=== PATIENT | male | born 1965 | race Caucasian/White ===

== ENCOUNTER → 2016-10-11 | Emergency (ER) | payer OTHER ==
[~2016-10-11] VITALS: Ht 180.3 cm; Wt 90.9 kg
[~2016-10-11] MED LIST: COLACE100 MG PO; FLEXERIL10 MG PO; IBUPROFEN800 MG PO; LIDODERM 5% P1 PATCH TD; LODINE400 MG PO; LOVENOX30 MG/0.3 SC; MAG-AL PLUS SUS30 ML PO; MILK OF MAGNESI10 ML PO; NAPROSYN500 MG PO; NAPROXEN500 MG PO; OMEPRAZOLE20 MG PO; ONDANSETRON4 MG/2 ML IV; OXYCODONE HCL5 MG PO; PERCOCET 5/31 TABLET PO; SENNA8.6 MG PO; SERTRALINE HCL100 MG PO; SIMVASTATIN20 MG PO; TORADOL10 MG PO; ULTRAM50 MG PO; VALIUM2 MG PO; ZYRTEC10 M2 PO
[2016-10-11 05:51] VITALS: BP 143/86
== END | disposition home or self-care (01) ==
LOC: EME 04:12
DX: S29.011A Strain of muscle and tendon of front wall of thorax, initial encounter (principal); X50.0XXA Overexertion from strenuous movement or load, initial encounter; Y93.89 Activity, other specified; Z88.0 Allergy status to penicillin
CPT/HCPCS: 71101; 99281; 99283

== ENCOUNTER 2016-10-16 15:23 | Emergency (ER) | payer OTHER ==
[~2016-10-16] VITALS: Ht 180.3 cm; Wt 101.4 kg
[2016-10-16] MEDS ORDERED: LIDODERM 5% P1 PATCH TD (16:28)
[2016-10-16] MEDS ORDERED: FLEXERIL10 MG PO (16:28)
[2016-10-16 17:51] VITALS: BP 116/79
== END 2016-10-16 17:59 | disposition home or self-care (01) ==
LOC: EME 15:23
DX: S20.219A Contusion of unspecified front wall of thorax, initial encounter (principal); S29.011A Strain of muscle and tendon of front wall of thorax, initial encounter; X50.0XXD Overexertion from strenuous movement or load, subsequent encounter; F17.200 Nicotine dependence, unspecified, uncomplicated; K21.9 Gastro-esophageal reflux disease without esophagitis; Z88.0 Allergy status to penicillin
CPT/HCPCS: 99281; 99284; J1885

== ENCOUNTER 2017-01-28 21:55 | Emergency (ER) | payer OTHER ==
[~2017-01-28] VITALS: Ht 182.9 cm; Wt 100.5 kg
[2017-01-28] MEDS ORDERED: NAPROXEN500 MG PO (23:20)
[2017-01-28] MEDS ORDERED: VALIUM5 MG PO (23:20)
[2017-01-29 00:01] VITALS: BP 124/80
== END 2017-01-29 00:04 | disposition home or self-care (01) ==
LOC: EME 21:55 → EXP 21:55
DX: S33.5XXA Sprain of ligaments of lumbar spine, initial encounter (principal); X58.XXXA Exposure to other specified factors, initial encounter; Z88.0 Allergy status to penicillin
CPT/HCPCS: 99281; 99284; J3010; J8540

== ENCOUNTER 2017-02-11 08:12 | Emergency (ER) | payer OTHER ==
[~2017-02-11] VITALS: Ht 180.3 cm; Wt 99.7 kg
[~2017-02-11 08:12] MED LIST changes: +VALIUM5 MG PO
[2017-02-11 09:22] VITALS: BP 125/85
== END 2017-02-11 09:24 | disposition home or self-care (01) ==
LOC: EME 08:12
DX: G89.29 Other chronic pain (principal); M54.5 Low back pain; F17.200 Nicotine dependence, unspecified, uncomplicated; Z88.0 Allergy status to penicillin
CPT/HCPCS: 99281; 99284; J1885

== ENCOUNTER 2017-11-16 19:20 | Emergency (ER) | payer OTHER ==
[~2017-11-16] VITALS: Ht 180.3 cm; Wt 96.4 kg
[2017-11-16] MEDS ORDERED: PREDNISONE20 MG PO (20:30)
[2017-11-16] MEDS ORDERED: NORCO 7.5/321 TABLET PO (20:30)
[2017-11-16] MEDS ORDERED: VALIUM5 MG PO (20:30)
[2017-11-16 20:48] VITALS: BP 121/71
== END 2017-11-16 20:51 | disposition home or self-care (01) ==
LOC: EME 19:20
DX: M51.37 Other intervertebral disc degeneration, lumbosacral region (principal); S39.92XA Unspecified injury of lower back, initial encounter; X58.XXXA Exposure to other specified factors, initial encounter; Z88.0 Allergy status to penicillin; F17.200 Nicotine dependence, unspecified, uncomplicated
CPT/HCPCS: 99281; 99284; J3010; J7512